=== PATIENT | female | born 1945 | race Caucasian/White ===

== ENCOUNTER 2024-01-02 08:07 | Emergency (ER) | payer MEDICARE ==
[~2024-01-02] VITALS: Ht 170.2 cm; Wt 67.3 kg
[~2024-01-02 08:07] MED LIST: AML5T PO; CLON0.5T3 PO; DULO60CA41 PO; FLEC100T PO; GABA-1250 PO; LEVO500T31 PO; MET50T PO; PRA1C PO; ROPI1TAB PO; TEMA30CA PO; TRAZ-228 PO; WARF-66 PO
[2024-01-02 09:28] VITALS: BP 129/69; PULSE 80; RESP 17; TEMP 97.8; O2SAT 95
[2024-01-02] MEDS: HYDROcodone-ACET 5/325MG TAB PO ONE (09:53)
[2024-01-02] MEDS ORDERED: CEL100T PO (10:34)
[2024-01-02] MEDS ORDERED: LIDO5DIS21 TOP (10:34)
== END 2024-01-02 10:45 | disposition home or self-care (01) ==
LOC: ER 08:07
DX: M54.50 Low back pain, unspecified (principal); I48.91 Unspecified atrial fibrillation; I10 Essential (primary) hypertension; Z90.49 Acquired absence of other specified parts of digestive tract; Z88.5 Allergy status to narcotic agent; Z85.79 Personal history of other malignant neoplasms of lymphoid, hematopoietic and related tissues; Z79.899 Other long term (current) drug therapy; W18.30XA Fall on same level, unspecified, initial encounter; Y93.89 Activity, other specified; Y92.89 Other specified places as the place of occurrence of the external cause; Y99.8 Other external cause status
CPT/HCPCS: 72100